=== PATIENT | female | born 1975 | race Caucasian/White ===

== ENCOUNTER 2019-02-26 19:36 | Emergency (ER) | payer MEDICAID ==
[~2019-02-26] VITALS: Ht 144.8 cm; Wt 81.8 kg
[2019-02-26 20:01] VITALS: Ht 144.8 cm; Wt 81.8 kg
[2019-02-26] MEDS ORDERED: GABAPENTIN100 MG PO (20:03)
[2019-02-26] MEDS ORDERED: LASIX20 MG PO ×2 (20:03→23:04)
[2019-02-26] MEDS ORDERED: CYMBALTA30 MG PO (20:03)
[2019-02-26] MEDS ORDERED: CYCLOBENZAPRINE10 MG PO (20:03)
[2019-02-26] MEDS ORDERED: TYLENOL W/CODEI1 TAB PO (20:03)
[2019-02-26] MEDS ORDERED: ATIVAN0.5 MG PO (20:04)
[2019-02-26] MEDS ORDERED: MECLIZINE HCL25 MG PO (20:04)
[2019-02-26] MEDS ORDERED: ZOFRAN4 MG PO (20:04)
[2019-02-26] MEDS ORDERED: KLOR-CON 1010 MEQ PO (20:04)
[2019-02-26] MEDS ORDERED: PROTONIX40 MG PO (20:04)
[2019-02-26] MEDS ORDERED: TRAZODONE HCL150 MG PO (20:05)
[2019-02-26] MEDS ORDERED: DEPAKENE250 MG PO (20:05)
[2019-02-26] MEDS ORDERED: VOLTAREN75 MG PO (23:04)
[2019-02-26 23:34] VITALS: BP 108/63
== END 2019-02-26 23:34 | disposition home or self-care (01) ==
LOC: D.ER 19:36
DX: M79.605 Pain in left leg (principal); M79.604 Pain in right leg; R60.0 Localized edema